=== PATIENT | male | born 1945 | race Caucasian/White ===

== ENCOUNTER → 2017-10-04 | Outpatient (CLI) | payer MEDICARE, OTHER ==
--- NOTE | 2017-10-04 17:49 | RADIOLOGY REPORT (SQ) ---
EXAM DESCRIPTION: CHEST PA/LATERAL COMPLETED DATE/TIME: 10/04/2017 5:37 pm REASON FOR STUDY: COUGH;BRONCHITIS COMPARISON: 03/24/2013 EXAM PARAMETERS: NUMBER OF VIEWS: two views TECHNIQUE: Digital Frontal and Lateral radiographic views of the chest acquired. RADIATION DOSE: NA LIMITATIONS: none FINDINGS: LUNGS AND PLEURA: No opacities, masses or pneumothorax. No pleural effusion. MEDIASTINUM AND HILAR STRUCTURES: No masses or contour abnormalities. HEART AND VASCULAR STRUCTURES: Heart normal size. No evidence for failure. BONES: No acute findings. HARDWARE: None in the chest. OTHER: No other significant finding. IMPRESSION: NO SIGNIFICANT RADIOGRAPHIC FINDING IN THE CHEST. TECHNICAL DOCUMENTATION: JOB ID: [id number] [employer]- All Rights Reserved Reading location - IP/workstation name: [email or web address]
== END ==
LOC: OD 17:13
PROVIDERS: ATTEND Family Medicine
DX: J40 Bronchitis, not specified as acute or chronic (principal); R05 Cough
CPT/HCPCS: 71046

== ENCOUNTER → 2018-09-07 | Outpatient (CLI) | payer MEDICARE, OTHER ==
--- NOTE | 2018-09-07 09:19 | RADIOLOGY REPORT (SQ) ---
EXAM DESCRIPTION: LUMBAR SPINE COMPLETE COMPLETED DATE/TIME: 09/07/2018 9:03 am REASON FOR STUDY: LUMBAGO WITH SCIATICA, RIGHT SIDE M54.41 LUMBAGO WITH SCIATICA, RIGHT SIDE COMPARISON: None. NUMBER OF VIEWS: Five views including obliques. TECHNIQUE: AP, lateral, oblique, and sacral radiographic images acquired of the lumbar spine. LIMITATIONS: None. FINDINGS: MINERALIZATION: Normal. SEGMENTATION: 5 dnh-xbo-wfgxeon lumbar vertebral bodies. Mild enlargement of the bilateral L5 transv erse process ease. ALIGNMENT: Dextroconvex lumbar curvature. VERTEBRAE: Maintained height. No fracture or worrisome bone lesion. DISCS: Degenerative disc disease with height loss and endplate change at L4-5 and L5-S1. Mild small additional associated osteophytes. Mild osteophytosis at the lower thoracic spine. POSTERIOR ELEMENTS: Pedicles and facets appear intact. No pars defects. Lower lumbar facet arthropa thy. HARDWARE: None in the spine. PARASPINAL SOFT TISSUES: Aortic atherosclerosis. PELVIS: Intact as visualized. No fractures or worrisome bone lesions. SI joints intact. OTHER: No other significant finding. IMPRESSION: No evidence of acute bony abnormality. Degenerative disc disease with disc height loss and endplate change at L4-5 and L5-S1. Mild lower arun mbar facet arthropathy. TECHNICAL DOCUMENTATION: JOB ID: [id number] [employer]- All Rights Reserved Reading location - IP/workstation name: [email or web address]
== END ==
LOC: OD 08:39
PROVIDERS: ATTEND Family Medicine
DX: M54.41 Lumbago with sciatica, right side (principal); M51.37 Other intervertebral disc degeneration, lumbosacral region
CPT/HCPCS: 72110

== ENCOUNTER 2018-09-10 14:49 | Emergency (ER) | payer MEDICARE, OTHER ==
--- NOTE | 2018-09-10 15:22 | ER Document Report ---
ED Medical Screen (RME) - General Chief Complaint: Back Pain Stated Complaint: LEG NUMBNESS Time Seen by Provider: 09/10/18 15:08 Primary Care Provider: MARIBELL MATHIS MD [Primary Care Provider] - Follow up as needed Notes: Patient is a 73-year-old male who presents the emergency department with a chief complaint of weakness to his right upper thigh and tingling in his right lower calf. He states that 6 days ago he was at the gym working out and he felt a "slip" or "catch" in his back after his workout. He did not have pain until the next day, on Wednesday. He saw his primary care provider and was started on me thylprednisone and cyclobenzaprine. An x-ray was done that showed degenerative disc disease with height loss and endplate change at L4-L5 and L5-S1. He also had some osteophytes noted. He followed up with his primary care provider and primary care provider recommend MRI, but the patient stated that that time he was not able to. Patient states that he is able to walk, but he is not walking how he normally does. Exam: Patient walking with a limp, favoring the left side. Tenderness noted to right lower back. I have greeted and performed a rapid initial assessment of this patient. A comprehensive ED assessment and evaluation of the patient, analysis of test results and completion of medical decision making process will be conducted by an additional ED providers. TRAVEL OUTSIDE OF THE [place] IN LAST 30 DAYS: No - Related Data Allergies/Adverse Reactions: No Known Allergies Allergy (Verified 09/10/18 14:50) Past Medical History Renal/ Medical History: Denies: Hx Peritoneal Dialysis Psychiatric Medical History: Denies: Hx Depression - Immunizations Hx Diphtheria, Pertussis, Tetanus Vaccination: No Physical Exam - Vital signs Vitals: Temp Pulse Resp BP Pulse Ox 97.6 F 65 16 164/96 H 99 09/10/18 14:54 09/10/18 14:54 09/10/18 14:54 09/10/18 14:54 09/10/18 14:54 Course - Vital Signs Vital signs: Temp Pulse Resp BP Pulse Ox 97.6 F 65 16 164/96 H 99 09/10/18 14:54 09/10/18 14:54 09/10/18 14:54 09/10/18 14:54 09/10/18 14:54 Doctor's Discharge - Discharge Referrals: MARIBELL MATHIS MD [Primary Care Provider] - Follow up as needed
[2018-09-10 15:34] LABS: ABSOLUTE EOSINOPHILS # (AUTO) 0.1 10^3/uL (0.0-0.6); ABSOLUTE LYMPHOCYTES (AUTO) 1.5 10^3/uL (0.5-4.7); ABSOLUTE MONOCYTES (AUTO) 0.7 10^3/uL (0.1-1.4); ABSOLUTE NEUT (AUTO) 3.8 10^3/uL (1.7-8.2); BASOPHILS % (AUTO) 0.8 % (0-2); EOSINOPHILS % (AUTO) 1.7 % (0-6); HEMATOCRIT 37.2 % (37.9-51.0); HEMOGLOBIN 13.2 g/dL (13.5-17.0); LYMPHOCYTES % (AUTO) 24.2 % (13-45); MEAN CORPUSCULAR HGB CONC 35.5 g/dL (32.0-36.0); MEAN CORPUSCULAR VOLUME 93 fl (80-97); MONOCYTES % (AUTO) 11.8 % (3-13); PLATELET COUNT 239 10^3/uL (150-450); RED BLOOD COUNT 3.99 10^6/uL (4.35-5.55); RED CELL DISTRIBUTION WIDTH 12.8 % (11.5-14.0); SEGMENTED NEUTROPHILS % (AUTO) 61.5 % (42-78); TOTAL CELLS COUNTED % (AUTO) 100 %; WHITE BLOOD COUNT 6.1 10^3/uL (4.0-10.5)
[2018-09-10 15:57] LABS: ALANINE AMINOTRANSFERASE 31 U/L (21-72); ALBUMIN 4.6 g/dL (3.5-5.0); ALKALINE PHOSPHATASE 50 U/L (38-126); ANION GAP 9 (5-19); ASPARTATE AMINO TRANSFERASE 69 U/L (17-59); BILIRUBIN,DIRECT 0.4 mg/dL (0.0-0.4); BILIRUBIN,TOTAL 0.9 mg/dL (0.2-1.3); BLOOD UREA NITROGEN 15 mg/dL (7-20); CALCIUM 9.3 mg/dL (8.4-10.2); CARBON DIOXIDE 30 mmol/L (22-30); CHLORIDE 94 mmol/L (98-107); GLUCOSE 98 mg/dL (75-110); POTASSIUM 4.7 mmol/L (3.6-5.0); TOTAL PROTEIN 7.9 g/dL (6.3-8.2)
[2018-09-10] MEDS ORDERED: NORMAL SALINE 1000 ML 1,000 ML IV ONE (16:00)
--- NOTE | 2018-09-10 16:49 | ER Document Report ---
ED Neck/Back Problem - General TRAVEL OUTSIDE OF THE [place] IN LAST 30 DAYS: No <CAITIE ROBERTS - Last Filed: 09/10/18 18:50> <TERRISUZAN Acacia - Last Filed: 09/10/18 22:04> - General Chief Complaint: Back Pain Stated Complaint: LEG NUMBNESS Time Seen by Provider: 09/10/18 15:08 Primary Care Provider: MARIBELL SUAREZ MD [Primary Care Provider] - Follow up as needed CANDIDA MORRELL MD [NO LOCAL MD] - Follow up as needed Notes: Patient is a 73-year-old male presents to the emergency department with a chief complaint of right leg weakness. Patient states that last Wednesday he was at the gym doing arm curls when he felt something slip/relax in his right lower back. He stated that it did not feel right so he stopped doing the arm curls. Patient states throughout the night he continued to have discomfort to the right lower back that radiated into his right thigh down to the right knee. Patient did see his primary care physician Dr. Suarez and was diagnosed with sciatica. Patient was placed on a steroid Dosepak and Flexeril. Patient states that the pain has improved but yesterday around 4 PM his right leg gave out on him. Patient states that it "just feels weak." Patient states he does have numbness and tingling to the right lower extremity. Patient denies loss of bowel or bladder. Patient reports a normal appetite. (CAITIE ROBERTS) - Related Data Allergies/Adverse Reactions: No Known Allergies Allergy (Verified 09/10/18 14:50) Past Medical History - General Information source: Patient - Social History Smoking Status: Unknown if Ever Smoked Cigarette use (# per day): No Frequency of alcohol use: None Drug Abuse: None Lives with: Spouse/Significant other Family History: CVA - brother of CVA in his 40s Patient has suicidal ideation: No Patient has homicidal ideation: No - Past Medical History Cardiac Medical History: Reports: None Pulmonary Medical History: Reports: Other - Seasonal allergies EENT Medical History: Reports: None Neurological Medical History: Reports: None Endocrine Medical History: Reports: None Renal/ Medical History: Reports: None. Denies: Hx Peritoneal Dialysis Malignancy Medical History: Reports None GI Medical History: Reports: None Musculoskeletal Medical History: Reports None Skin Medical History: Reports None Psychiatric Medical History: Reports: None Denies: Hx Depression Traumatic Medical History: Reports: None Infectious Medical History: Reports: None - Immunizations Hx Diphtheria, Pertussis, Tetanus Vaccination: No Hx Pneumococcal Vaccination: 03/25/13 <CAITIE ROBERTS - Last Filed: 09/10/18 18:50> Other: TURP, right rotator cuff surgery. (CAITIE ROBERTS) Review of Systems - Review of Systems Constitutional: See HPI EENT: No symptoms reported Cardiovascular: No symptoms reported Respiratory: No symptoms reported Gastrointestinal: No symptoms reported Genitourinary: No symptoms reported Male Genitourinary: No symptoms reported Musculoskeletal: See HPI Skin: No symptoms reported Hematologic/Lymphatic: No symptoms reported Neurological/Psychological: No symptoms reported <CAITIE ROBERTS - Last Filed: 09/10/18 18:50> Physical Exam - Vital signs Interpretation: Hypertensive <CAITIE ROBERTS - Last Filed: 09/10/18 18:50> - Vital signs Vitals: Temp Pulse Resp BP Pulse Ox 97.6 F 65 16 164/96 H 99 09/10/18 14:54 09/10/18 14:54 09/10/18 14:54 09/10/18 14:54 09/10/18 14:54 - Notes Notes: GENERAL: Well-appearing, well-nourished and in no acute distress. HEAD: Atraumatic, normocephalic. EYES: Pupils equal round and reactive to light, extraocular movements intact, sclera anicteric, conjunctiva are normal. ENT: TMs normal, nares patent, oropharynx clear without exudates. Moist mucous membranes. NECK: Normal range of motion, supple without lymphadenopathy or JVD. LUNGS: Breath sounds clear to auscultation bilaterally and equal. No wheezes rales or rhonchi. HEART: Regular rate and rhythm without murmurs, rubs or gallops. ABDOMEN: Soft, nontender, normoactive bowel sounds. No guarding, no rebound. No masses appreciated. BACK: No cervical, thoracic, lumbar midline tenderness. No saddle anesthesia, n ormal distal neurovascular exam. No paraspinal tenderness. Mild right lower back tenderness. GENITOURINARY: Deferred. EXTREMITIES: Normal range of motion, no pitting or edema. No clubbing or cyan osis. PSYCH: Normal mood, normal affect. SKIN: Warm, Dry, normal turgor, no rashes or lesions noted. Face symmetric. Tongue protrudes midline. Extraocular motions intact. Pupils are 2 mm and equally reactive. Normal speech, ambulates with a limp due to RLE weakness. 5 out of 5 strength in both the distal and proximal upper and left lower extremity. Weakness noted to the RLE, strong flexion and extension of the right foot. Sensation is grossly intact throughout. Finger to nose testing n ormal. Pronator drift normal. (CAITIE ROBERTS) Course - Laboratory Result Diagrams: 09/10/18 15:25 09/10/18 15:25 <CAITIE ROBERTS - Last Filed: 09/10/18 18:50> - Laboratory Result Diagrams: 09/10/18 15:25 09/10/18 15:25 <SUZAN MURRAY - Last Filed: 09/10/18 22:04> - Re-evaluation Re-evalutation: 09/10/18 18:51 Patient continues to complain of right lower leg weakness as well as intermittent pain. Patient states now that he thinks about it he is unsure if the weakness in his right leg was new as he had been in so much pain throughout the week. Regardless patient needs additional testing like a CT of the head to rule out a bleed and MRI of the lumbar spine. I did discuss with the patient and who is agreement with this plan. (CAITIE ORBERTS) 09/10/18 21:[address] 09/10/18 18:41 IMPRESSION: NO ACUTE INTRACRANIAL IMAGING FINDINGS. EVIDENCE OF ACUTE STROKE: NO. Lumbar Spine MRI 09/10/18 18:42 IMPRESSION: 1. Focal extradural lesion in the right lateral recess of L3 with mass effect on the right L3 root, suspicious for sequestered disc fragment. Please correlate with distribution of clinical symptoms. 2. Other chronic degenerative changes as described. Lumbar spine MRI results discussed with Dr. Walden. Recommendation to give Depo- Medrol 80 mg IM and have patient follow-up with neurosurgery. 09/10/18 22:01 Test results were discussed with the patient, treatment plan discussed with patient. Patient verbalizes understanding and need to follow-up with neuros urgery. Patient will be sent home with prescription for Percocet for pain. (SUZAN MURRAY) - Vital Signs Vital signs: Temp Pulse Resp BP Pulse Ox 97.6 F 65 16 164/96 H 99 09/10/18 14:54 09/10/18 14:54 09/10/18 14:54 09/10/18 14:54 09/10/18 14:54 - Laboratory Laboratory results interpreted by tn: 09/10/18 09/10/18 15:25 15:25 RBC 3.99 L Hgb 13.2 L Hct 37.2 L Sodium 133.0 L Chloride 94 L AST 69 H - Diagnostic Test Radiology results interpreted by tn: 09/10/18 18:50 Lumbar spine that was performed on 07 September 2018 revealed no evidence of acute bony abnormality. There was mild enlargement of the bilateral L5 transverse processes. (CAITIE ROBERTS) Discharge <CAITIE ROBERTS - Last Filed: 09/10/18 18:50> <SUZAN MURRAY - Last Filed: 09/10/18 22:04> - Discharge Clinical Impression: Right leg numbness, Lumbar disc herniation Back pain Qualifiers: Back pain location: low back pain Chronicity: acute Back pain laterality: right Sciatica presence: with sciatica Sciatica laterality: sciatica of right side Qualified Code(s): M54.41 - Lumbago with sciatica, right side Condition: Stable Disposition: HOME, SELF-CARE Additional Instructions: You have been given a copy of your MRI report. Please call both your primary care physician as well as a neurosurgeon for follow-up. Contact information for neurosurgeon has been provided. You were given a dose of steroids here in the emergency department today, this should last for approximately 3 to 4 days. You are also given a prescription for pain medication. Please take as prescribed. Do not drive while taking this medication. Return to the emergency department if you experience any worsening symptoms such as loss of control of your bowel movements or urine or you have urinary retention. Prescriptions: Oxycodone HCl/Acetaminophen [Percocet 5-325 mg Tablet] 1 tab PO Q4H PRN #12 tablet PRN Reason: Referrals: MARIBELL SUAREZ MD [Primary Care Provider] - Follow up as needed CANDIDA MORRELL MD [NO LOCAL MD] - Follow up as needed
--- NOTE | 2018-09-10 19:20 | RADIOLOGY REPORT (SQ) ---
EXAM DESCRIPTION: CT HEAD WITHOUT COMPLETED DATE/TIME: 09/10/2018 7:10 pm REASON FOR STUDY: right leg weakness COMPARISON: None. TECHNIQUE: Axial images acquired through the brain without intravenous contrast. Images reviewed wi th bone, brain and subdural windows. Additional sagittal and coronal reconstructions were generated. Images stored on PACS. All CT scanners at this facility use dose modulation, iterative reconstruction, and/or weight based d osing when appropriate to reduce radiation dose to as low as reasonably achievable (ALARA). [facility]: Dose Right [facility]: CareDose [facility]: Dose Right [facility]: Teradose 4D [facility]: Smart Utel RADIATION DOSE: CT Rad equipment meets quality standard of care and radiation dose reduction techniq ues were employed. CTDIvol: 53.2 mGy. DLP: 1044 mGy-cm. mGy. LIMITATIONS: None. FINDINGS: VENTRICLES: Normal size and contour. CEREBRUM: No masses. No hemorrhage. No midline shift. No evidence for acute infarction. Normal gra y/white matter differentiation. No areas of low density in the white matter. CEREBELLUM: No masses. No hemorrhage. No alteration of density. No evidence for acute infarction. EXTRAAXIAL SPACES: No fluid collections. No masses. ORBITS AND GLOBE: No intra- or extraconal masses. Normal contour of globe without masses. CALVARIUM: No fracture. PARANASAL SINUSES: Status post bilateral antrectomies. Mild left maxillary mucosal thickening. No f luid levels. SOFT TISSUES: No mass or hematoma. OTHER: Atherosclerotic vascular calcifications are seen within the cavernous segments of the internal carotid artery is. IMPRESSION: NO ACUTE INTRACRANIAL IMAGING FINDINGS. EVIDENCE OF ACUTE STROKE: NO. COMMENT: Quality ID # [id number]: Final reports with documentation of one or more dose reduction techniques (e.g., Automated exposure control, adjustment of the mA and/or kV according to patient size, use of iterative reconstruction technique) TECHNICAL DOCUMENTATION: JOB ID: [id number] [employer]- All Rights Reserved Reading location - IP/workstation name: [email or web address]
[2018-09-10] MEDS ORDERED: MORPHINE SULFATE 10 MG/ML INJ IV ONE (19:30)
[2018-09-10 19:33] LABS: INTERNATIONAL RATION (INR) 1.01; PROTHROMBIN TIME 13.3 SEC (11.4-15.4)
[2018-09-10 19:34] LABS: PARTIAL THROMBOPLASTIN TIME 28.6 SEC (23.5-35.8)
--- NOTE | 2018-09-10 20:45 | RADIOLOGY REPORT (SQ) ---
EXAM DESCRIPTION: [facility]: MR LUMBAR SPINE WITHOUT IV CONTRAST CLINICAL HISTORY: 73 years Male; right leg weakness TECHNIQUE: Noncontrast MRI lumbar spine. COMPARISON: None. FINDINGS: Alignment is anatomic. L1-L2: Minimal disc bulging. No stenosis. L2-L3: Minimal disc bulging. Mild facet arthropathy. No stenosis. L3-L4: There is an extradural structure in the right lateral recess posterior to the L3 body, approximately 8 mm LR by 4 mm AP. This extends partially into the right L3-L4 foramen and is likely an extruded disc fragment. This does not directly communicate with the L2-L3 or the L3-L4 disc but more likely came from the L3-L4 disc, which shows bulging and a right posterolateral annular tear. This causes displacement of right L3 root. There is no central canal stenosis. Mild bilateral facet arthropathy. No left foraminal stenosis. L4-L5: Mild broad posterior disc bulging. Mild facet arthropathy. Mild left and moderate right foraminal stenosis. No central stenosis, canal AP diameter 14 mm. L5-S1: Severe bilateral facet arthropathy. No subluxation. Mild disc bulging. Moderate right foraminal stenosis, mostly due to facet arthropathy. No acute bone marrow edema or perivertebral soft tissue edema. Incidental 1.1 cm perineural cyst is noted at S2 to the right of midline. IMPRESSION: 1. Focal extradural lesion in the right lateral recess of L3 with mass effect on the right L3 root, suspicious for sequestered disc fragment. Please correlate with distribution of clinical symptoms. 2. Other chronic degenerative changes as described.
[2018-09-10] MEDS ORDERED: METHYLPREDNISOLONE ACETATE INJ 80 MG/1 ML VIAL IM ONE (21:30)
[2018-09-10] MEDS ORDERED: HYDROCODONE/ACETAMINOPHEN 5-325 MG (6 TAB/ER DISP) PO PRN (22:01)
[2018-09-10 22:12] VITALS: BP 145/72
--- NOTE | 2018-09-10 23:10 | EKG REPORT ---
SEVERITY:- NORMAL ECG - SINUS RHYTHM : Confirmed by: Doni Gaytan 10-Sep-2018 23:09:04
== END 2018-09-10 22:10 | disposition home or self-care (01) ==
LOC: ER 14:49
DX: M51.16 Intervertebral disc disorders with radiculopathy, lumbar region (principal); M47.9 Spondylosis, unspecified; R53.1 Weakness
CPT/HCPCS: 99284; 96372; 96361; 96374; 36415; 85025; 85610; 85730; 80053; 72148; 70450; 93005; 93010; J1040; J2270; J7030; A9270

== ENCOUNTER 2019-08-14 06:52 | Day surgery (SDC) | payer OTHER, MEDICARE ==
[2019-08-14] MEDS ORDERED: PROPOFOL INJ 200 MG/20 ML VIAL IV ONE ×2 (07:47→08:18)
--- NOTE | 2019-08-14 10:44 | Operative Report ---
Operative Report DATE OF SURGERY: 08/14/19 Operative Report: The risks, benefits and alternatives of the procedure including the risk of bleeding, perforation requiring surgery have been explained to the patient in detail and informed consent has been obtained. Patient is taken back to the endoscopy suite and placed in a left, lateral decubital position. Timeout was called. Propofol medication is administered. Rectal examination is done which did not reveal any masses, tears or fissures. An Olympus videoscope was introduced into the patient's rectum and the scope carefully advanced all the way to the cecum. Cecum was identified by the usual anatomical landmarks of the ileocecal valve as well as the appendiceal office. Photodocumentation is obtained. Scope was then sequentially pulled back via the various segments of the colon including the ascending colon, hepatic lecture, transverse colon, splenic flexure, descending colon and finally into the rectosigmoid portions of the colon. Retroflexion maneuvers performed. PREOPERATIVE DIAGNOSIS: Personal history of polyp POSTOPERATIVE DIAGNOSIS: Hepatic flexure polyp status post biopsy. Diverticulosis without any evidence of diverticulitis. Internal hemorrhoids OPERATION: Colonoscopy with biopsy SURGEON: PHILOMENA CALDWELL ANESTHESIA: LMAC TISSUE REMOVED OR ALTERED: As noted above. COMPLICATIONS: None. ESTIMATED BLOOD LOSS: None. INTRAOPERATIVE FINDINGS: As noted above. PROCEDURE: Patient tolerated the procedure well. No immediate postprocedure complications are noted. Patient is discharged in good condition. Discharge date 08/14/2019. Discharge diet: Regular. Discharge activity: Regular. 2 to 3-week follow-up to discuss findings. Patient is instructed to call the office or proceed to the emergency room should there be any further problems or questions. Wait on the pathology. 5-year surveillance colonoscopy.
[2019-08-14 11:14] VITALS: BP 98/64
== END 2019-08-14 11:20 | disposition home or self-care (01) ==
LOC: END 06:52
PROVIDERS: ATTEND Internal Medicine Gastroenterology
DX: Z12.11 Encounter for screening for malignant neoplasm of colon (principal); D12.6 Benign neoplasm of colon, unspecified; K57.30 Diverticulosis of large intestine without perforation or abscess without bleeding; K64.8 Other hemorrhoids; Z86.010 Personal history of colon polyps; J44.9 Chronic obstructive pulmonary disease, unspecified; Z03.818 Encounter for observation for suspected exposure to other biological agents ruled out; Z79.899 Other long term (current) drug therapy
CPT/HCPCS: 45380; 87635; 88305 ×2; J2704; C9803; 812